=== PATIENT | female | born 1955 | race Caucasian/White ===

== ENCOUNTER 2018-10-13 15:00 | Inpatient (IN) ==
[2018-10-16] MEDS ORDERED: Sodium Chlor 0.9% Inj 250 ML ONE (08:57)
[2018-10-16] MEDS ORDERED: Chlorhexidine Gluconate 2% 1 Pack (2 Cloths) TOPICAL ONE (09:00)
[2018-10-16] MEDS ORDERED: Sodium Chlor 0.9% Inj 500 ML IV.CONT ONE (09:00)
[2018-10-16] MEDS ORDERED: Vancomycin Inj 1,000 MG in Sodium Chlor 0.9% Inj 250 ML IV.SIG SCH (09:00)
[2018-10-16] MEDS ORDERED: Metoprolol Tartrate 25 MG Tablet PO ONE (09:00)
[2018-10-16] MEDS ORDERED: Chlorhexidine 4% Topical 120 APPLIC/120 ML Bottle TOPICAL SCH (09:00)
--- NOTE | 2018-10-16 12:51 | P.OP ---
- Preoperative Diagnosis (1) Osteoarthritis of right hip - Postoperative Diagnosis (1) Osteoarthritis of right hip Date of procedure: 10/16/18 Procedure: Right total hip arthroplasty, posterior exposure Anesthesia: GETA Surgeon: Joseph Ibrahim MD Barrel Polisher: Thomas Ibrahim Operation and Findings: EBL: 200 cc INDICATION: This patient is a 63-year-old female with significant right hip pain. She has large periarticular osteophytes and extensive osteoarthritis of the right hip. Despite extensive conservative care, she continued to be painful and symptomatic. She presents for surgical treatment NOTE: Thomas Ibrahim MD was present for the entire surgical procedure as my first line production supervisor. In my medical opinion his skill and care was necessary for the proper management of this patient. COMPONENTS: COMPANY: [employer] CUP: [place], 54 mm, 100 series STEM: Size 5, standard offset, Kemper pressfit HEAD: Ceramic, 36 mm, +5 14 taper ALTRX: 36, neutral PROCEDURE: This patient was brought to the operating room and anesthetized in the supine position and positioned on the routine table in the clean air suite. The patient was then rolled to a right side up lateral position and held with a Squlaet hip positioner. The hip and leg was scrubbed with alcohol followed by Hibiclens followed by chloro prep and draped sterilely. A timeout was done and antibiotics were given within a routine time window. A 4 inch incision was made starting along the posterior one third of the greater trochanter. The iliotibial band was opened in line with the incision. The Charnley retractors were positioned. The posterior capsule and external rotators were taken down together in a sleeve. The neck was cut at the right location. The head was removed from the wound. The acetabulum was inspected. Deep retractors were positioned. The acetabulum was deepened down to the floor and started with a proper size reamer and reaming up to 53 mm. This was trialed with the same size trial. The overall fit was satisfactory. The rim was touched with the next size reamer. The cup was placed in approximately 40 of abduction and 30 of forward flexion. The final liner was positioned. Retractors were positioned allowing good visualization of the proximal femur. A box osteotome was utilized followed by a taper pin reamer followed by progressive broaching for the Kemper stem. This was reamed and broached and eventually advanced to a size 5 stem. A trial reduction showed satisfactory stability. Offset was satisfactory. Leg length was reestablished. At 90 of flexion it was stable to 50 of internal rotation. The hip could not be subluxed anteriorly. The final stem was inserted in approximately 15 of anteversion. The final head was impacted. The hip was reduced and stability, offset and leg length was as previously noted. The posterior capsule and external rotators were repaired through bone with interrupted #2 Tycron sutures. The piriformis muscle was repaired with the same. The iliotibial band with interrupted #1 Vicryl sutures. Subcutaneous tissue was approximated with 2-0 Vicryl suture and skin with running intradermal 3-0 Vicryl followed by Steri-Strips and benzoin. A sterile dressing was applied.. The sponge count needle counts and instrument counts were all correct. The patient was awakened and taken to the recovery room in satisfactory condition FINDINGS: There was severe osteoarthritis of the right hip. There was a large anterior osteophyte which was resected. The final solution was excellent. There was no complication that was appreciated.
[2018-10-16] MEDS ORDERED: Post-op Orders (for Pharmacy) OTHER STA (13:14)
[2018-10-16] MEDS ORDERED: Morphine Inj 4 MG/ML Vial IV.PUSH PRN (13:14)
[2018-10-16] MEDS ORDERED: *Meperidine Inj 25 MG/ML Vial PERIprocedural Use ONLY ONE (13:14)
[2018-10-16] MEDS ORDERED: Bisacodyl 10 MG Supp RECTAL PRN (13:14)
[2018-10-16] MEDS ORDERED: Zolpidem Tartrate 5 MG Tablet PO PRN (13:15)
[2018-10-16] MEDS ORDERED: fentaNYL Citrate Inj 100 MCG/2 ML Ampul ONE (13:18)
--- NOTE | 2018-10-16 13:20 | P.DCO ---
- Physical Therapy Physical Therapy: Gait training, Safety evaluation, Transfer training, bed to chair Hip: Total hip, Protocol: Right, Posterior hip precautions Canvas Knee Splint: When in bed with 2 pillows between thighs Right Lower Extremity Weight Bearing: Weight bearing as tolerated - Nursing RN: 3 days/week x 2 weeks Nursing: Dressing changes (clean incision with alcohol and apply dry sterile dressing daily ) Additional instructions: aspirin 81 mg bid x 4 weeks dvt prop wear knee high teds during day time - Certification Need for Home Health services: I have seen patient Usha Coleman on 10/16/18. My clinical findings support the need for the requested home health care services because: Need for Home Health Services: Deconditioned with increased weakness, High risk of falls Homebound Certification: I certify that my clinical findings support that this patient is homebound because: Homebound Certification: Post-op weakness
[2018-10-16] MEDS ORDERED: Morphine Inj 4 MG/ML Vial ONE ×2 (13:30→13:42)
[2018-10-16] MEDS: Clindamycin 600 mg/NS Premix 600 MG/50 ML PIGGYBACK IV.SIG SCH ×2 (13:45→21:04)
--- NOTE | 2018-10-16 14:21 | XR ---
EXAM DATE: 10/16/2018 2:17 PM EST AGE/SEX: 63 years / Female INDICATIONS: Post op right hip replacement. CLINICAL DATA: This is the patient's initial encounter. Patient reports that signs and symptoms have been present for 1 day and indicates a pain score of Nonresponsive. MEDICAL/SURGICAL HISTORY: None. None. COMPARISON: No prior exams available for comparison. FINDINGS: 3 views of the right hip and pelvis. Total hip prosthesis in place. Bone alignment within normal limi ts. No evidence fracture. CONCLUSION: Unremarkable postoperative appearance right total hip prosthesis. Electronically signed by: Frederick Greer MD 10/16/2018 2:20 PM EST
[2018-10-16] MEDS: Senna/Docusate Sodium 8.6/50 MG Tablet PO SCH (21:02)
[2018-10-17] MEDS: Clindamycin 600 mg/NS Premix 600 MG/50 ML PIGGYBACK IV.SIG SCH (03:16)
[2018-10-17 05:09] LABS: Hematocrit 25.9 % (35.0-46.0); Hemoglobin 8.9 gm/dL (11.6-15.3)
--- NOTE | 2018-10-17 07:20 | P.PNOP ---
Subjective Interval history: pt has post operative right hip pain states she feels a bit out of it, little dizzy, did not sleep well last night Physical Exam Vital signs: Vital Signs 10/16/18 09:10 10/16/18 13:11 10/16/18 13:15 Temperature 97.6 F 97.6 F Pulse Rate 70 103 H 94 H Respiratory Rate 18 14 15 Blood Pressure 127/85 132/78 126/72 Pulse Oximetry 97 99 97 10/16/18 13:30 10/16/18 13:42 10/16/18 13:44 Temperature Pulse Rate 87 Respiratory Rate 16 15 15 Blood Pressure 143/59 H Pulse Oximetry 97 10/16/18 13:45 10/16/18 14:00 10/16/18 14:15 Temperature Pulse Rate 85 82 82 Respiratory Rate 15 15 15 Blood Pressure 118/56 L 102/53 L 100/58 L Pulse Oximetry 97 99 98 10/16/18 14:45 10/16/18 15:00 10/16/18 15:15 Temperature 97.4 F L Pulse Rate 79 89 89 Respiratory Rate 17 16 15 Blood Pressure 98/59 L 102/57 L 95/51 L Pulse Oximetry 98 98 99 10/16/18 15:30 10/16/18 16:15 10/16/18 20:00 Temperature 97.3 F L 97.4 F L Pulse Rate 83 85 85 Respiratory Rate 16 12 18 Blood Pressure 97/52 L 96/58 L 102/57 L Pulse Oximetry 98 99 98 10/17/18 00:35 10/17/18 03:20 10/17/18 05:10 Temperature 98.3 F 98.7 F 97.9 F Pulse Rate 81 91 H 85 Respiratory Rate 18 18 16 Blood Pressure 99/58 L 114/62 99/53 L Pulse Oximetry 99 98 94 L Intake & Output 10/16/18 10/17/18 10/17/18 18:59 06:59 18:59 Intake Total 2540 / 2540 1260 / 1260 Output Total 500 / 500 Balance 2040 / 2040 1260 / 1260 Weight 69.2 kg 77.6 kg Intake: IV 300 / 300 1000 / 1000 LR 1000 mL Inj 1,000 ML @ 80 950 / 950 mls/hr IV.CONT .[id number] [facility] Rx# :[id number] Cleocin 600 mg/NS Premix 600 mg 50 / 50 50 / 50 In 50 ml @ 50 mls/hr IV.SIG Q6H GABRIELA Rx#:[id number] Vancomycin Inj 1,000 MG In NS 250 / 250 Inj 250 ML @ 250 mls/hr IV.SIG OCEANOGRAPHY PROFESSOR GABRIELA Rx#:[id number] Oral 240 / 240 260 / 260 Anesthesia Amount 1999 Output: Estimated Blood Loss 500 / 500 Other: # Voids 1 Date of Last Bowel Movement 10/15/18 10/15/18 Weight On Admission 69.2 kg Narrative: seen in room with her sister and Dr. Joseph Ibrahim right hip dressing dry and intact no calf tenderness +NVI limb lengths equal Results - Labs CBC & Chem 7: 10/17/18 04:21 Laboratory Results - last 24 hr 10/16/18 10/17/18 08:50 04:21 Hgb 8.9 L Hct 25.9 L Blood Type O Negative Antibody Screen Negative MTS Gel Crossmatch See Detail - Imaging Impressions Hip X-Ray 10/16/18 13:13 CONCLUSION: Unremarkable postoperative appearance right total hip prosthesis. Assessment and Plan - Assessment and Plan POD # 1 s/p R CHANTAL PT-WBAT, posterior hip precautions baby aspirin 81 mg bid x 4 weeks anticipate discharge later today with [facility] if orthopedically stable if she feels she cannot go today, will be discharged Saturday
[2018-10-17] MEDS: Senna/Docusate Sodium 8.6/50 MG Tablet PO SCH ×2 (09:13→21:21)
[2018-10-17] MEDS: Sod Chloride 0.9% Inj 1,000 ML IV.SIG SCH ×2 (16:15→23:00)
[2018-10-17] MEDS: LORazepam 0.5 MG Tablet SL PRN (21:22)
[2018-10-18] MEDS: Sod Chloride 0.9% Inj 1,000 ML IV.SIG SCH ×3 (06:46→19:49)
--- NOTE | 2018-10-18 07:57 | P.PNOP ---
Subjective Interval history: still having pain but better. Physical Exam Vital signs: Vital Signs 10/17/18 08:00 10/17/18 12:00 10/17/18 16:00 Temperature 98.2 F 98.5 F 99.1 F Pulse Rate 98 H 104 H 101 H Respiratory Rate 16 16 16 Blood Pressure 99/55 L 98/58 L 98/55 L Pulse Oximetry 94 L 94 L 94 L 10/17/18 20:00 10/17/18 21:15 10/17/18 21:17 Temperature 99.7 F H 99.8 F H 98.4 F Pulse Rate 104 H Respiratory Rate 18 Blood Pressure 122/62 Pulse Oximetry 95 10/17/18 22:57 10/18/18 04:00 Temperature 99.2 F Pulse Rate 98 H Respiratory Rate 18 Blood Pressure 111/56 L 109/64 Pulse Oximetry 95 Intake & Output 10/17/18 10/18/18 10/18/18 18:59 06:59 18:59 Intake Total 480 / 480 1120 / 1120 Balance 480 / 480 1120 / 1120 Weight 76.1 kg Intake: IV 1000 / 1000 NS Inj 1,000 ML @ 150 mls/hr IV 1000 / 1000 .SIG .[id number] GABRIELA Rx#:[id number] Oral 480 / 480 120 / 120 Other: # Voids 1 Date of Last Bowel Movement 10/16/18 10/15/18 Narrative: in bed, nad dressing c/d/i neg lala nvi Results - Labs CBC & Chem 7: 10/17/18 04:21 Assessment and Plan - Ortho Post Op Day # 2 - Assessment and Plan POD # 2 s/p R CHANTAL PT-WBAT, posterior hip precautions baby aspirin 81 mg bid x 4 weeks pain control PT anticipate discharge later today with [facility] if does well in PT if she feels she cannot go today, she will be discharged Saturday
[2018-10-18 08:05] LABS: Hemoglobin 7.6 gm/dL (11.6-15.3)
[2018-10-18] MEDS: Senna/Docusate Sodium 8.6/50 MG Tablet PO SCH ×2 (08:23→21:59)
[2018-10-18] MEDS: LORazepam 0.5 MG Tablet SL PRN (21:58)
[2018-10-19] MEDS: Sod Chloride 0.9% Inj 1,000 ML IV.SIG SCH ×3 (04:12→14:55)
[2018-10-19] MEDS: Senna/Docusate Sodium 8.6/50 MG Tablet PO SCH ×2 (08:07→20:18)
--- NOTE | 2018-10-19 08:13 | P.PNOP ---
Subjective Interval history: still having pain, and dizziness Physical Exam Vital signs: Vital Signs 10/18/18 09:51 10/18/18 12:00 10/18/18 15:54 Temperature 97.5 F L 97.7 F Pulse Rate 90 89 Respiratory Rate 18 18 Blood Pressure 110/58 L 109/66 Pulse Oximetry 97 92 L 94 L 10/18/18 20:00 10/19/18 00:00 10/19/18 04:00 Temperature 98.6 F 99.0 F 98.3 F Pulse Rate 90 94 H 95 H Respiratory Rate 17 18 17 Blood Pressure 108/60 107/54 L 120/69 Pulse Oximetry 94 L 96 94 L 10/19/18 08:00 Temperature 98.1 F Pulse Rate 92 H Respiratory Rate 16 Blood Pressure 117/64 Pulse Oximetry 94 L Intake & Output 10/18/1818 10/19/18 18:59 06:59 18:59 Intake Total 850 / 850 Balance 850 / 850 Weight 76.2 kg Intake: Oral 850 / 850 Other: # Voids 3 2 Date of Last Bowel Movement 10/15/18 Narrative: in bed, nad dressing c/d/i neg homans nvi Results - Labs CBC & Chem 7: 10/18/18 06:14 Laboratory Results - last 24 hr 10/16/18 08:50 MTS Gel Crossmatch See Detail Assessment and Plan - Ortho Post Op Day # 3 - Assessment and Plan POD # 3 s/p R CHANTAL PT-WBAT, posterior hip precautions baby aspirin 81 mg bid x 4 weeks pain control PT post op anemia - symptomatic. transfuse 1 unit PRBC. d/c planning home with [facility] and pt f/up Dr. Teri Ibrahim 2 weeks
[2018-10-19 12:00] LABS: Hematocrit 22.5 % (35.0-46.0); Hemoglobin 7.6 gm/dL (11.6-15.3)
[2018-10-20 00:34] VITALS: RESP 17
[2018-10-20] MEDS: Sod Chloride 0.9% Inj 1,000 ML IV.SIG SCH ×2 (01:17→04:28)
[2018-10-20 08:33] VITALS: BP 144/73; PULSE 71; TEMP 98.2; O2SAT 94
[2018-10-20] MEDS: Senna/Docusate Sodium 8.6/50 MG Tablet PO SCH (09:01)
== END 2018-10-20 11:25 | disposition home health service (06) ==
LOC: HSDI 10-16 08:14 → N06 10-16 16:04
PROVIDERS: ADMIT Orthopaedic Surgery Orthopaedic Surgery of the Spine; ATTEND Orthopaedic Surgery Orthopaedic Surgery of the Spine